=== PATIENT | male | born 1955 | race Caucasian/White ===

== ENCOUNTER 2025-03-23 11:47 | Emergency (ER) | payer OTHER ==
[~2025-03-23 11:47] MED LIST: Iopamidol 370 76% 100 ML VIAL ONE
[2025-03-23 12:53] LABS: ALT (SGPT) Less than 7 U/L (Less than 45); AST (SGOT) 14 U/L (11-34); Albumin 3.3 g/dL (3.1-4.5); Alkaline Phosphatase 73 U/L (40-110); Anion Gap 16 mmol/L (10-20); BUN (Urea Nitrogen) 14 mg/dL (8.4-25.7); Bilirubin, Total 0.3 mg/dL (0.3-1.2); Calc. Creatinine Clearance 0 mL/min (70-130); Calcium 10.6 mg/dL (7.8-10.44); Carbon Dioxide 23 mmol/L (23-31); Chloride 101 mmol/L (98-107); Globulin 4.4 g/dL (2.4-3.5); Glucose 107 mg/dL (83-110); Potassium 4.4 mmol/L (3.5-5.1); Sodium 136 mmol/L (136-145)
[2025-03-23 12:55] LABS: Troponin I 0.011 ng/mL (< 0.028)
[2025-03-23 13:06] LABS: Hematocrit 39.7 % (42.0-52.0); Hemoglobin 13.4 g/dL (14.0-18.0); MDiff Complete? YES; Mean Corpuscular Hemoglobin 30.9 pg (27.0-31.0); Mean Corpuscular Volume 91.4 fl (78.0-98.0); Platelet Adequacy Comment Appears Adequate; Platelet Count 388 10x3/uL (130-400); Red Blood Cell (RBC) Count 4.34 mill/uL (4.70-6.10); White Blood Cell (WBC) Count 24.1 10x3/uL (4.8-10.8)
[2025-03-23] MEDS ORDERED: Cefepime 2 GM VIAL ONE (13:49)
[2025-03-23] MEDS ORDERED: LevoFLOXacin 750 mg/D5W 150 ml Premix Bag ONE (13:49)
== END 2025-03-23 16:41 | disposition short-term general hospital (02) ==
LOC: NAV ERS 11:47
DX: R09.02 Hypoxemia (principal); R06.02 Shortness of breath; R05.9 Cough, unspecified; D72.829 Elevated white blood cell count, unspecified; F17.200 Nicotine dependence, unspecified, uncomplicated
CPT/HCPCS: 36415; 71046; 71275; 80053; 83605; 83880; 84484; 85025; 85379; 87040; 87149; 87426; 93005; 94640; 94760; 96365; 96366; 96368; 96375; J0692; J1956; J2919; J7030; J7620; Q9967